=== PATIENT | female | born 1960 | race Caucasian/White ===

== ENCOUNTER → 2016-10-11 | Day surgery (SDC) | payer MEDICARE, OTHER ==
[~2016-10-11] VITALS: Ht 157.5 cm; Wt 44.4 kg
[~2016-10-11] MED LIST: *morphine SULFATE 8 MG/ML PERIprocedure ONLY ONE; BELL16.218 RECTAL; CHLORHEXIDINE GLUCONATE 2 % 1 PACK (2 CLOTHS) TOPICAL PRN; DO NOT ADM ANY ANTICOAGULANT DRUGS PRN; FENT50DI T-DERMAL; GENT80I BLADDER; HEPAR10KP BLADDER; HYDR-3583 PO; INSULIN HUMAN REGULAR 1,000 UNITS/10 ML VIAL SQ PRN; LACT10SO PO; LACTATED RINGER'S 1000 ML IV PRN; LIDOCAINE 0.5%/EPINEPHrine 1:200,000 SOLN 50 ML VIAL ONE; LIDOCAINE HCL 1% 20 ML VIAL INFIL ONE; LISI-519 PO; LORA-373 PO; MAGNSOL2 PO; METOPROLOL TARTRATE 25 MG TAB PO PRN; ONDANSETRON HCL 4 MG/2 ML VIAL IV PUSH PRN; POVIDONE IODINE 5% (ANTISEPSIS KIT) 4 APPLICATIONS EACH NARE PRN; PROC2.5C RECTAL; PROM25TA10 PO; PROM2SUP RECTAL; PROPOFOL 200 MG/20 ML AMP IV ONE; REMOVE OLD DURAGESIC (FENTANYL) PATCH T-DERMAL SCH; SODIUM CHLORID 0.9% 500 ML IV PRN; TRIA50P BLADDER; [UNRECOGNIZED DRUG - CODE] BLADDER; [UNRECOGNIZED DRUG - CODE] BLADDER; ceFAZolin 1,000 MG/NS 100 ML IV SCH; fentaNYL 50 MCG/HR PATCH T-DERMAL ONE; oxyCODONE/ACETAMINOPHEN 5 MG/325 MG TAB PO PRN
[2016-10-11 07:41] LABS: AUTOMATED NEUTROPHIL # 7.6 TH/MM3 (1.8-7.7); BASOPHIL # 0.1 TH/MM3 (0-0.2); BASOPHIL % 0.6 % (0.0-2.0); EOSINOPHIL # 0.2 TH/MM3 (0-0.4); EOSINOPHIL % 2.3 % (0.0-4.0); HEMATOCRIT 38.1 % (35.0-46.0); HEMO FLAGS DIFF FINAL; LYMPH % 16.8 % (9.0-44.0); LYMPHOCYTE # 1.8 TH/MM3 (1.0-4.8); MEAN CELL VOLUME 95.2 FL (80.0-100.0); MEAN CORPUSCULAR HEMOGLOBIN 31.7 PG (27.0-34.0); MEAN CORPUSCULAR HGB CONC 33.3 % (32.0-36.0); MONO % 7.5 % (0.0-8.0); NEUT % 72.8 % (16.0-70.0); PLATELET COUNT 270 TH/MM3 (150-450); RED CELL DISTRIBUTION WIDTH 12.7 % (11.6-17.2); WHITE BLOOD COUNT 10.5 TH/MM3 (4.0-11.0)
--- NOTE | 2016-10-11 10:29 | PD.OP ---
Operative Report Date of Surgery: Oct 11, 2016 Preoperative Diagnosis: Failed InterStim battery and lead Postoperative Diagnosis: Same Procedure: Implant of InterStim lead 36257 Battery change InterStim 59614 Fluoroscopy 88762 Programming of InterStim 05493 Surgeon: Cristobal Stark Hydraulic Jack Operator(s): None Resident Surgeon: None Operation and Findings: 56-year-old female with history of interstitial cystitis with overactive bladder symptoms and a failed InterStim lead and battery here to undergo battery and lead change. Risks minutes versus preoperative issues when proceed. Patient was brought to the operating room and identified by myself as Chely Tamayo. She is placed on the operating table in the prone position and received monitored anesthesia control. Preprocedure antibiotics were administered and she is prepped and draped in usual sterile fashion. Pillows were placed under the lower abdomen to flatten the sacrum and under the shins to allow the toes to dangle freely. A ground pad was placed on the bottom the patient's foot and the long test stimulator cable was connected to the ground pad and to the external test stimulator. C-arm was moved into the P position upon fluoroscopic mapping of the sacral region which included marking out midline of the sacrum, SI joints, static notches, medial foraminal borders and sacral foramen. Local injection of 1% lidocaine was administered and a foramen needle was placed and 60 angle into the S3 foramen. C-arm was then put into a lateral position to check depth of the needle into the placement of the proper foramen. The foramen needle was introduced approximately 2 cm above the sciatic notch and into centers lateral to the sacral midline, feeling for foraminal margins until the S3 foramen was identified and penetrated. The depth the needle was confirmed and adjusted fluoroscopically. Proper needle position was confirmed by patient identification of location of sensation, direct observation of lifting of the perineum, and observation of plantar flexion of the great toe utilizing the external stimulator. The needle foramen stylette was removed and a directional guide was then placed and confirmed fluoroscopically. The foramen needle was removed. Incision was made peripherally to the directional guide through the fascial layer. The lead introducer sheath with dilator was placed over the directional guide and directed into the foramen insuring the radiopaque marker the lead introducer did not extend beyond the anterior edge of the sacrum. The dilator was unlocked and removed along with the directional guide. The lead was then placed through the introducer sheath to the first white line. Position was checked fluoroscopically. The lead was then further reduced until 3 electrodes were visible below the sacrum. Each electrode was tested for location of patient's sensation, visualization of jalen, and plantar flexion of the great toe. After satisfactory positioning was confirmed, the introducer sheath was retracted under continuous fluoroscopy, deploying lead tines into the presacral tissue. Further incision was made and subcutaneous tissue posterior to the iliac crest and lateral to the sacrum. Blunt dissection was continued into the gluteal fascia was identified and hemostasis was achieved. The old battery was identified and disconnected from its lead. A tunneling tool with the strut was placed from the lead exit site subcutaneously to the incised pocket site. Tunneling tool was removed and the lead was fed through the straw and pulled out of the pocket site. The lead was cleansed of bodily fluids, dried and a protective boot is placed over the lead. Lead was inserted into the new InterStim battery. The old lead was then placed below the InterStim battery and the battery was placed in the pocket without difficulty. The battery pocket was irrigated prior to placement. Impedance were confirmed to be within normal limits, greater than 50 and less than 4000. The battery pocket was then closed with a 4-0 running subcuticular Monocryl suture. The main blood loss was 10 cc. Dressings were placed and Steri-Strips were placed over the wound. She was awoken and transferred to recovery in stable condition. CPT codes for this procedure include implant on the lead 04988, battery change 24185, fluoroscopy 75700, and battery program 51143. Cristobal Stark DO Oct 11, 2016 10:29
[2016-10-11 11:48] VITALS: BP 103/66; PULSE 77; RESP 16; TEMP 98.5; O2SAT 98
--- NOTE | 2016-10-11 15:48 | RADRPT ---
EXAM DATE/TIME: 10/11/2016 09:15 [facility] COMPARISON: No previous studies available for comparison. INDICATIONS : Right Interstim placement, MEDICAL HISTORY : None. SURGICAL HISTORY : None. Left interstim ENCOUNTER: Initial ACUITY: 1 day PAIN SCORE: Non-responsive. LOCATION: Right sacrum. FINDINGS: 2 magnified C. arm spot views are centered over the sacrum. Stimulator leads overlie the sacrum bilat erally. No gross bony abnormality seen. CONCLUSION: Limited images as detailed above. Lincoln Tim Jr., MD on October 11, 2016 at 15:45 Board Certified Radiologist. This report was verified electronically.
--- NOTE | 2016-10-11 20:26 | EKG ---
Date Performed: 10/11/2016 Time Performed: 07:14:28 PTAGE: 56 years EKG: Sinus rhythm PREVIOUS TRACING : 07/13/2015 07.46 Compared to prior tracing no significant change DOCTOR: Feliciano Stoner Interpretating Date/Time 10/11/2016 20:26:24
== END | disposition home or self-care (01) ==
LOC: HSDC 06:02
PROVIDERS: ATTEND Urology
DX: N30.10 Interstitial cystitis (chronic) without hematuria (principal); N32.81 Overactive bladder; I10 Essential (primary) hypertension; F17.210 Nicotine dependence, cigarettes, uncomplicated; F41.9 Anxiety disorder, unspecified; F32.9 Major depressive disorder, single episode, unspecified; Z01.810 Encounter for preprocedural cardiovascular examination; Z79.899 Other long term (current) drug therapy
CPT/HCPCS: 00630; 64581; 64590; 72220; 76000; 85025; 93005; C1713; C1767; C1778; C1787; J0690; J2270; J3010; J7120

== ENCOUNTER 2016-10-24 13:42 | Emergency (ER) | payer MEDICARE, OTHER ==
[~2016-10-24] VITALS: Ht 152.4 cm; Wt 45.0 kg
[~2016-10-24 13:42] MED LIST changes: -*morphine SULFATE 8 MG/ML PERIprocedure ONLY ONE; -CHLORHEXIDINE GLUCONATE 2 % 1 PACK (2 CLOTHS) TOPICAL PRN; -DO NOT ADM ANY ANTICOAGULANT DRUGS PRN; -GENT80I BLADDER; -HEPAR10KP BLADDER; -INSULIN HUMAN REGULAR 1,000 UNITS/10 ML VIAL SQ PRN; -LACT10SO PO; -LACTATED RINGER'S 1000 ML IV PRN; -LIDOCAINE 0.5%/EPINEPHrine 1:200,000 SOLN 50 ML VIAL ONE; -LIDOCAINE HCL 1% 20 ML VIAL INFIL ONE; -LISI-519 PO; -MAGNSOL2 PO; -METOPROLOL TARTRATE 25 MG TAB PO PRN; -ONDANSETRON HCL 4 MG/2 ML VIAL IV PUSH PRN; -POVIDONE IODINE 5% (ANTISEPSIS KIT) 4 APPLICATIONS EACH NARE PRN; -PROM25TA10 PO; -PROPOFOL 200 MG/20 ML AMP IV ONE; -REMOVE OLD DURAGESIC (FENTANYL) PATCH T-DERMAL SCH; -SODIUM CHLORID 0.9% 500 ML IV PRN; -TRIA50P BLADDER; -[UNRECOGNIZED DRUG - CODE] BLADDER; -[UNRECOGNIZED DRUG - CODE] BLADDER; -ceFAZolin 1,000 MG/NS 100 ML IV SCH; -fentaNYL 50 MCG/HR PATCH T-DERMAL ONE; -oxyCODONE/ACETAMINOPHEN 5 MG/325 MG TAB PO PRN
[2016-10-24 13:45] VITALS: BP 145/95; PULSE 99; RESP 24; TEMP 97.6; O2SAT 99
--- NOTE | 2016-10-24 15:05 | PD ---
HPI Chief Complaint: Abdominal Pain Time Seen by Provider: 15:04 Travel History International Travel<30 days: No Contact w/Intl Traveler<30days: No Traveled to known affect area: No History of Present Illness HPI 56-year-old female came to the emergency room looking very anxious and high- pitched voice but not making too much sense saying that she is here because the bladder stimulator wire got switched. From what I could understand after trying to reorient her to get a proper history is that her urologist Dr. Stark did a procedure on her last Friday at [place] and put a bladder stimulator. Since then she has been constipated. She was in the emergency room at [place] where she was told that she needs to see her urologist since the wires might be switched. She went to see Dr. Stark in his office but he was not in the office and the office staff asked to come to the emergency room. She is here demanding to see the urologist surgeon consumer analyst. Vital signs are stable. Patient says that she knows she is on opiate medications for pain control which could make her constipated but this is new since the procedure. [facility] Past Medical History Narrative Medical List of her past medical, surgical, social and family history was reviewed from the nursing note. Hx Anticoagulant Therapy: No Cancer: No Cardiovascular Problems: No Chemotherapy: No Cerebrovascular Accident: No Diabetes: No Endocrine: No Genitourinary: Yes (IC) Hepatitis: No Hiatal Hernia: No Immune Disorder: No Kidney Stones: Yes Musculoskeletal: No Neurologic: No Psychiatric: No Reproductive: No Respiratory: Yes (SMOKER) Thyroid Disease: No ?: Not Menopausal: Yes : 3 Para: 2 Miscarriage: 1 Past Surgical History Abdominal Surgery: Yes (CHOLY) AICD: No Body Medical Devices: BLADDER STIMULATOR Cardiac Surgery: No Cholecystectomy: Yes Ear Surgery: No Endocrine Surgery: No Eye Surgery: No Genitourinary Surgery: Yes (BLADDER STIMULATOR) Gynecologic Surgery: No Hysterectomy: No Joint Replacement: No Oral Surgery: No Pacemaker: No Thoracic Surgery: No Other Surgery: Yes (BREAST IMPLANTS ) Social History Alcohol Use: Yes (OCC) Tobacco Use: Yes (4 CIGARETTES A DAY) Substance Use: No Allergies-Medications (Allergen,Severity, Reaction): Coded Allergies: fesoterodine (Unverified Allergy, Severe, TONGUE SWELLING, TROUBLE BREATHING, 10/25/16) oxybutynin (Verified Allergy, Severe, TONGUE SWELLING, 10/25/16) trazodone (Verified Allergy, Severe, TONGUE SWELLING, 10/25/16) clonazepam (Unverified Allergy, Unknown, TONGUE SWELLING, 10/25/16) ketorolac (Unverified Allergy, Unknown, TONGUE SWELLING, 10/25/16) ondansetron (Verified Allergy, Unknown, UNKNOWN, 10/25/16) Comments List of her allergies reviewed from the nursing note. Reported Meds & Prescriptions Reported Meds & Active Scripts Active Magnesium Citrate Liq (Magnesium Citrate) 300 Ml Liq 300 Ml PO DIRECTED Reported Lisinopril 5 Mg Tab 5 Mg PO DAILY Lactulose Liq (Lactulose) 10 Gm/15 Ml Soln 30 Ml PO Q6H PRN Fentanyl Patch 72 HR (Fentanyl) 50 Mcg/Hr Patch 50 Mcg T-DERMAL Q72H Remove old patch when new one placed. Phenergan Supp (Promethazine HCl) 12.5 Mg Supp 12.5 Mg RECTAL Q6H PRN Proctosol Hc 2.5% (Hydrocortisone Rectal 2.5%) 2.5% Cream 1 Applic RECTAL DAILY PRN Belladonna-Opium Supp 16.2-30 Mg Supp 1 Supp RECTAL Q12HR PRN Hydrocodone-Acetaminophen 10-325 mg Tab 1 Tab PO Q6H PRN Lorazepam 0.5 Mg Tab 0.5 Mg PO Q8H PRN Narrative Medication List of her home medications reviewed from the nursing note. Review of Systems Except as stated in HPI: all other systems reviewed are Neg Physical Exam Narrative GENERAL: Awake, alert, anxious flight of thoughts SKIN: Focused skin assessment warm/dry. fentanyl patch on her chest HEAD: Atraumatic. Normocephalic. EYES: Pupils equal and round. No scleral icterus. No injection or drainage. ENT: No nasal bleeding or discharge. Mucous membranes pink and moist. NECK: Trachea midline. No JVD. CARDIOVASCULAR: Regular rate and rhythm. No murmur appreciated. RESPIRATORY: No accessory muscle use. Clear to auscultation. Breath sounds equal bilaterally. GASTROINTESTINAL: Abdomen soft, non-tender, nondistended. Hepatic and splenic margins not palpable. MUSCULOSKELETAL: No obvious deformities. No clubbing. No cyanosis. No edema. NEUROLOGICAL: Awake and alert. No obvious cranial nerve deficits. Motor grossly within normal limits. Normal speech. PSYCHIATRIC: Anxious with flight of thoughts and pressured speech; insight and judgment normal. Data Data Last Documented VS Vital Signs Date Time Temp Pulse Resp B/P (MAP) Pulse Ox O2 Delivery O2 Flow Rate FiO2 10/24/16 17:35 10/24/16 17:00 84 18 98 Room Air 10/24/16 13:45 97.6 Orders Orders Abdomen, Kub Only (10/24/16 ) Enema (10/24/16 16:52) MDM Medical Decision Making Medical Screen Exam Complete: Yes Emergency Medical Condition: Yes Medical Record Reviewed: Yes Differential Diagnosis Constipation, postsurgical complication Narrative Course 4:45 PM I discussed the case with Dr. Stark who eventually called back and he requested to get a KUB to check if patient is obstipated. If she was fine and then she could be discharged home and he will see her in his office tomorrow and have the device interrogated. It is very difficult to make the patient understand since she is fixated with the idea that she should she see Dr. Stark in the emergency room. I let her know that this was not an emergency and she could be seen as an outpatient at which point she threatened to call and complain to channel 13. I looked at the KUB and there might be some obstipation. Awaiting for the radiologist read the film. 4:46 PM as per the radiologist the x-ray is within normal limits with bowel gas pattern and stool all throughout the colon. Patient will get an enema given the fact that she hasn't had bowel movement in almost a week. After which she' ll be discharged. Procedures EKG Prior to Arrival: No Diagnosis Primary Impression: Postoperative complication Qualified Codes: N99.89 - Other postprocedural complications and disorders of genitourinary system Additional Impression: Constipation Qualified Codes: K59.03 - Drug induced constipation Referrals: Cristobal Stark DO 1 day Additional Instructions: Please follow-up with your urologist tomorrow morning as per the appointment time given to you. They will check the device and probably interrogated as well for its placement. Med/Other Pt SpecificInfo: No Change to Meds Disposition: 01 DISCHARGE HOME Condition: Stable Doris Taylor MD Oct 24, 2016 15:05
[2016-10-24 15:10] VITALS: BP 149/99; PULSE 85; RESP 18; O2SAT 98
[2016-10-24] MEDS ORDERED: LACT10SO PO (15:27)
[2016-10-24] MEDS ORDERED: LISI-519 PO (15:27)
--- NOTE | 2016-10-24 16:41 | RADRPT ---
EXAM DATE/TIME: 10/24/2016 16:24 [facility] COMPARISON: No previous studies available for comparison. INDICATIONS : Patient states constipation and abdominal pain since her stimulator was put in on Friday. MEDICAL HISTORY : None. SURGICAL HISTORY : Stimulator ENCOUNTER: Initial ACUITY: 1 day PAIN SCORE: Non-responsive. LOCATION: Bilateral Abdomen FINDINGS: Supine view of the abdomen was performed. The abdominal bowel gas pattern is normal. No abnormal ma sses, calcifications, or organomegaly is seen. Cholecystectomy clips. The osseous structures are unre markable. Nerve stimulators overlie the sacrum with a left lower pelvic device CONCLUSION: Normal examination. Nerve stimulator leads overlie both sides of the hemisacrum. Bowel gas pattern i s unremarkable with stool and air throughout the colon. Josh Hussein MD on October 24, 2016 at 16:38 Board Certified Radiologist. This report was verified electronically.
[2016-10-24 17:00] VITALS: BP 148/88; PULSE 84; RESP 18; O2SAT 98
[2016-10-25] MEDS ORDERED: MAGNSOL2 PO (10:53)
[2016-11-05] MEDS ORDERED: [UNRECOGNIZED DRUG - CODE] BLADDER (15:00)
[2016-11-05] MEDS ORDERED: [UNRECOGNIZED DRUG - CODE] BLADDER (15:00)
[2016-11-05] MEDS ORDERED: HEPAR10KP BLADDER (15:05)
[2016-11-05] MEDS ORDERED: GENT80I BLADDER (15:05)
[2016-11-05] MEDS ORDERED: TRIA50P BLADDER (15:05)
[2016-11-19] MEDS ORDERED: GENT80I BLADDER (15:04)
[2016-11-19] MEDS ORDERED: [UNRECOGNIZED DRUG - CODE] BLADDER (15:04)
[2016-11-19] MEDS ORDERED: HEPAR10KP BLADDER (15:04)
[2016-11-19] MEDS ORDERED: TRIA50P BLADDER (15:04)
[2016-11-19] MEDS ORDERED: [UNRECOGNIZED DRUG - CODE] BLADDER (15:04)
[2016-12-03] MEDS ORDERED: [UNRECOGNIZED DRUG - CODE] BLADDER (14:35)
[2016-12-03] MEDS ORDERED: [UNRECOGNIZED DRUG - CODE] BLADDER (14:35)
[2016-12-03] MEDS ORDERED: TRIA50P BLADDER (14:39)
[2016-12-03] MEDS ORDERED: HEPAR10KP BLADDER (14:39)
[2016-12-03] MEDS ORDERED: GENT80I BLADDER (14:39)
== END 2016-10-24 17:35 | disposition home or self-care (01) ==
LOC: NEPD 13:42
DX: K59.03 Drug induced constipation (principal); N99.89 Other postprocedural complications and disorders of genitourinary system; Z72.0 Tobacco use
CPT/HCPCS: 74000; 99283

== ENCOUNTER → 2017-02-20 | Day surgery (SDC) | payer MEDICARE, OTHER ==
[~2017-02-20] VITALS: Ht 154.9 cm; Wt 44.2 kg
[~2017-02-20] MED LIST changes: +BELLADONNA ALKALOIDS/OPIUM 60 MG SUPP RECTAL ONE; +BUPIVACAINE 0.5% ONE; +CHLORHEXIDINE GLUCONATE 2 % 1 PACK (2 CLOTHS) TOPICAL PRN; +DEXAMETHASONE SOD PHOS 4 MG/ML VIAL IV ONE; +HEPARIN ONE; +HYDROCORTISONE ONE; +HYDROmorphone HCL PF 1 MG/ML VIAL ONE; +LACT10SO PO; +LACTATED RINGER'S 1000 ML IV PRN; +LIDOCAINE 2% JELLY 5 ML TUBE ONE; +LIDOCAINE HCL 1% PF 5 ML SYRINGE OTHER ONE; +LISI-519 PO; -LORA-373 PO; +LORA0.5T PO; +MAGNSOL2 PO; +METOPROLOL TARTRATE 25 MG TAB PO PRN; +MORPHINE SULFATE 2 MG/ML INJ IV PRN; +PHENYLEPH/NS 1000 MCG/10 ML SYR IV ONE; +POVIDONE IODINE 5% (ANTISEPSIS KIT) 4 APPLICATIONS EACH NARE PRN; +PROMETHAZINE INJ 25 MG/ML VIAL IV-CENTRAL PRN; +PROPOFOL 200 MG/20 ML AMP IV ONE; +REMOVE OLD PATCH T-DERMAL SCH; +SODIUM CHLORID 0.9% 500 ML IV PRN; +[UNRECOGNIZED DRUG - OTHER] ONE; +[UNRECOGNIZED DRUG - OTHER] ONE; +ceFAZolin 1,000 MG/NS 100 ML IV SCH; +ePHEDrine/NS 25 MG/5 ML SYRINGE IV ONE; +fentaNYL 50 MCG/HR PATCH ONE; +fentaNYL 50 MCG/HR PATCH T-DERMAL ONE
[2017-02-20 09:19] LABS: BASOPHIL % 0.5 % (0.0-2.0); EOSINOPHIL # 0.1 TH/MM3 (0-0.4); EOSINOPHIL % 0.9 % (0.0-4.0); HEMATOCRIT 35.9 % (35.0-46.0); HEMOGLOBIN 12.1 GM/DL (11.6-15.3); LYMPH % 21.6 % (9.0-44.0); LYMPHOCYTE # 1.6 TH/MM3 (1.0-4.8); MEAN CELL VOLUME 94.4 FL (80.0-100.0); MEAN CORPUSCULAR HEMOGLOBIN 31.9 PG (27.0-34.0); MEAN CORPUSCULAR HGB CONC 33.8 % (32.0-36.0); MEAN PLATELET VOLUME 6.6 FL (7.0-11.0); MONO % 7.4 % (0.0-8.0); MONOCYTE # 0.5 TH/MM3 (0-0.9); NEUT % 69.6 % (16.0-70.0); PLATELET COUNT 292 TH/MM3 (150-450); RED CELL DISTRIBUTION WIDTH 12.8 % (11.6-17.2); WHITE BLOOD COUNT 7.2 TH/MM3 (4.0-11.0)
--- NOTE | 2017-02-20 10:43 | PD.OP ---
Operative Report Date of Surgery: Feb 20, 2017 Preoperative Diagnosis: Interstitial cystitis Postoperative Diagnosis: Same Procedure: Cystoscopy, hydrodistention with instillation of Euclid cocktail Anesthesia: Gen. LMA Surgeon: Cristobal Stark Constitutional Law Professor(s): None Resident Surgeon: None Operation and Findings: 56-year-old female with history of interstitial cystitis and ongoing pelvic pain. Patient was brought to the operating room today to undergo cystoscopy with hydrodistention with instillation of Euclid cocktail. Risk and benefits were discussed preoperative and she was willing to proceed. Patient was brought to the operating room and identified by myself as Chely Tamayo. She's placed in the dorsal lithotomy position, prepped and draped in usual sterile fashion, received preprocedure antibiotics, and general anesthesia was administered. 22 Divehi cystoscope was inserted in the bladder forte cystoscopy showed some erythema of the bladder. There were no Hunner's ulcers identified. The bladder then was filled with 1200 cc of normal saline. This was the maximum capacity that the bladder would hold. The bladder was then drained. A slight red hue was noted upon drainage of all the fluid. Марина cocktail was then instilled through a 14 Divehi Chu catheter with 2% lidocaine jelly injected into the female urethra. She tolerated the procedure well and was awoken and transferred her stable condition. Cristobal Stark DO Feb 20, 2017 10:43
[2017-02-20 11:44] VITALS: BP 118/92; PULSE 86; RESP 16; O2SAT 98
== END | disposition home or self-care (01) ==
LOC: HSDC 08:15
PROVIDERS: ATTEND Urology
DX: N30.10 Interstitial cystitis (chronic) without hematuria (principal); R10.2 Pelvic and perineal pain; Z01.818 Encounter for other preprocedural examination; G47.30 Sleep apnea, unspecified; Z87.440 Personal history of urinary (tract) infections; Z87.442 Personal history of urinary calculi
CPT/HCPCS: 00910; 52260; 85025; J0690; J1100; J1170; J2370; J3010; J7120

== ENCOUNTER 2017-07-22 09:49 | Emergency (ER) | payer MEDICARE, OTHER ==
[~2017-07-22] VITALS: Ht 154.9 cm; Wt 44.0 kg
[~2017-07-22 09:49] MED LIST changes: -BELLADONNA ALKALOIDS/OPIUM 60 MG SUPP RECTAL ONE; -BUPIVACAINE 0.5% ONE; -CHLORHEXIDINE GLUCONATE 2 % 1 PACK (2 CLOTHS) TOPICAL PRN; -DEXAMETHASONE SOD PHOS 4 MG/ML VIAL IV ONE; -HEPARIN ONE; -HYDROCORTISONE ONE; -HYDROmorphone HCL PF 1 MG/ML VIAL ONE; -LACTATED RINGER'S 1000 ML IV PRN; -LIDOCAINE 2% JELLY 5 ML TUBE ONE; -LIDOCAINE HCL 1% PF 5 ML SYRINGE OTHER ONE; -MAGNSOL2 PO; -METOPROLOL TARTRATE 25 MG TAB PO PRN; -MORPHINE SULFATE 2 MG/ML INJ IV PRN; -PHENYLEPH/NS 1000 MCG/10 ML SYR IV ONE; -POVIDONE IODINE 5% (ANTISEPSIS KIT) 4 APPLICATIONS EACH NARE PRN; -PROMETHAZINE INJ 25 MG/ML VIAL IV-CENTRAL PRN; -PROPOFOL 200 MG/20 ML AMP IV ONE; -REMOVE OLD PATCH T-DERMAL SCH; -SODIUM CHLORID 0.9% 500 ML IV PRN; -[UNRECOGNIZED DRUG - OTHER] ONE; -[UNRECOGNIZED DRUG - OTHER] ONE; -ceFAZolin 1,000 MG/NS 100 ML IV SCH; -ePHEDrine/NS 25 MG/5 ML SYRINGE IV ONE; -fentaNYL 50 MCG/HR PATCH ONE; -fentaNYL 50 MCG/HR PATCH T-DERMAL ONE
[2017-07-22 09:58] VITALS: BP 117/87; PULSE 91; RESP 17; TEMP 98.8; O2SAT 97
[2017-07-22] MEDS ORDERED: SODIUM CHLORID 0.9% 500 ML INJ 500 ML IV ONE (11:45)
[2017-07-22] MEDS ORDERED: PROMETHAZINE INJ 25 MG/ML VIAL IM ONE (11:45)
[2017-07-22] MEDS ORDERED: KETOROLAC TROMETHAMINE 30 MG/ML (IVP) VIAL IV PUSH ONE (11:45)
[2017-07-22 13:00] VITALS: RESP 16
--- NOTE | 2017-07-22 13:06 | PD ---
HPI Chief Complaint: Complaint Time Seen by Provider: 11:15 Travel History International Travel<30 days: No Contact w/Intl Traveler<30days: No Traveled to known affect area: No History of Present Illness HPI 57-year-old female complains of low back pain. Patient has history of interstitial cystitis and has been seen by urologist Dr. Stark and pain management. Patient has been taking morphine and fentanyl patch and hydrocodone for pain. Patient states that she fell out of bed and has increasing pain and low back area. Patient did not injure her back however patient states that the bladder stimulator lead was displaced. Patient states that she turned off the stimulator. Patient states that she had urinary retention Aleve but not now. Patient has been urinate several times since then. Patient denies any other injury. Patient denies any headache. Patient denies any chest pain or shortness of breath. Patient states that she has chronic low abdominal pelvic pain that is not new. Patient denies any focal weakness or numbness of the extremity. PFSH Past Medical History Hx Anticoagulant Therapy: No Cancer: No Cardiovascular Problems: No Chemotherapy: No Cerebrovascular Accident: No Diabetes: No Diminished Hearing: No Endocrine: No Genitourinary: Yes (INTERSTITIAL CYSTITIS) Hepatitis: No Hiatal Hernia: No Hypertension: Yes Immune Disorder: No Kidney Stones: Yes Musculoskeletal: No Neurologic: No Psychiatric: Yes (anxiety) Reproductive: No Respiratory: No Thyroid Disease: No Tetanus Vaccination: < 5 Years Influenza Vaccination: No ?: Not Menopausal: Yes : 3 Para: 2 Miscarriage: 1 Past Surgical History Abdominal Surgery: Yes (CHOLECYSTECTOMY) AICD: No Body Medical Devices: BLADDER STIMULATOR, BREAST IMPLANTS Cardiac Surgery: No Cholecystectomy: Yes Ear Surgery: No Endocrine Surgery: No Eye Surgery: No Genitourinary Surgery: Yes (BLADDER STIMULATOR) Gynecologic Surgery: No Hysterectomy: No Joint Replacement: No Oral Surgery: No Pacemaker: No Thoracic Surgery: No Other Surgery: Yes (BREAST IMPLANTS ) Social History Alcohol Use: No (DENIES) Tobacco Use: Yes (4-5 CIGARETTES A DAY) Substance Use: No Allergies-Medications (Allergen,Severity, Reaction): Coded Allergies: fesoterodine (Verified Allergy, Severe, TONGUE SWELLING, TROUBLE BREATHING , 07/22/17) oxybutynin (Verified Allergy, Severe, TONGUE SWELLING, 07/22/17) trazodone (Verified Allergy, Severe, TONGUE SWELLING, 07/22/17) clonazepam (Verified Allergy, Unknown, TONGUE SWELLING, 07/22/17) ondansetron (Verified Allergy, Unknown, UNKNOWN, 07/22/17) Reported Meds & Prescriptions Reported Meds & Active Scripts Active Reported Lisinopril 5 Mg Tab 5 Mg PO DAILY Lactulose Liq (Lactulose) 10 Gm/15 Ml Soln 30 Ml PO Q6H PRN Phenergan Supp (Promethazine HCl) 12.5 Mg Supp 12.5 Mg RECTAL Q6H PRN Proctosol Hc 2.5% (Hydrocortisone Rectal 2.5%) 2.5% Cream 1 Applic RECTAL DAILY PRN Belladonna-Opium Supp 16.2-30 Mg Supp 1 Supp RECTAL Q12HR PRN Hydrocodone-Acetaminophen 10-325 mg Tab 1 Tab PO Q6H PRN Lorazepam 0.5 Mg Tab 0.5 Mg PO Q8H PRN Review of Systems General / Constitutional: No: Fever Eyes: No: Visual changes HENT: No: Headaches Cardiovascular: No: Chest Pain or Discomfort Respiratory: No: Shortness of Breath Gastrointestinal: Positive: Abdominal Pain Genitourinary: No: Dysuria Musculoskeletal: No: Pain Skin: No Rash Neurologic: No: Weakness Psychiatric: No: Depression Endocrine: No: Polydipsia Hematologic/Lymphatic: No: Easy Bruising Physical Exam Narrative GENERAL: Well-nourished, well-developed patient. SKIN: Focused skin assessment warm/dry. HEAD: Normocephalic. EYES: No scleral icterus. No injection or drainage. NECK: Supple, trachea midline. No JVD or lymphadenopathy. CARDIOVASCULAR: Regular rate and rhythm without murmurs, gallops, or rubs. RESPIRATORY: Breath sounds equal bilaterally. No accessory muscle use. GASTROINTESTINAL: Abdomen soft, non-tender, nondistended. MUSCULOSKELETAL: No cyanosis, or edema. BACK: Patient has mild tenderness in palpation low back area, without obvious deformity. No CVA tenderness. Neurologic exam normal. Data Data Last Documented VS Vital Signs Date Time Temp Pulse Resp B/P (MAP) Pulse Ox O2 Delivery O2 Flow Rate FiO2 07/22/17 09:58 98.8 91 17 117/87 (97) 97 Orders Orders Sodium Chlorid 0.9% 500 Ml Inj (Ns 500 M (07/22/17 11:45) Ketorolac Inj (Toradol Inj) (07/22/17 11:45) Promethazine Inj (Phenergan Inj) (07/22/17 11:45) Ed Discharge Order (07/22/17 12:58) [facility] Medical Decision Making Medical Screen Exam Complete: Yes Emergency Medical Condition: Yes Differential Diagnosis Differential diagnosis including acute on chronic pain, bladder stimulator leads displacement. Narrative Course 57-year-old female with acute exacerbation of low back pain. History of chronic back pain and bladder pain. Patient in pain management. Patient has been seen by urologist. Diagnosis Primary Impression: Acute exacerbation of chronic low back pain Additional Impression: Interstitial cystitis Patient Instructions: General Instructions Additional Instructions: Continue with all medications. Follow-up with urologist Dr. Stark in the office. Med/Other Pt SpecificInfo: No Change to Meds Disposition: 01 DISCHARGE HOME Condition: Stable Elijah Trejo MD Jul 22, 2017 13:06
--- NOTE | 2017-07-22 14:29 | RADRPT ---
EXAM DATE: 07/22/2017 2:11 PM EDT AGE/SEX: 57 years / Female INDICATIONS: Tailbone pain after falling this morning. CLINICAL DATA: This is the patient's initial encounter. Patient reports that signs and symptoms have been present for 1 day and indicates a pain score of 8/10. MEDICAL/SURGICAL HISTORY: None. . Bladder stimulator. [place]PARISON[place] [facility] [place]. . FINDINGS: Two-view examination of the sacrum demonstrates no evidence of fracture or malalignment. The sacral ala and foramina appear symmetric and intact. The prevertebral soft tissues are within normal limits . CONCLUSION: No evidence of displaced fracture. Electronically signed by: Bairon Gamboa MD 07/22/2017 2:28 PM EDT
[2017-07-22 14:50] VITALS: BP 110/65
== END 2017-07-22 14:48 | disposition home or self-care (01) ==
LOC: NEPE 09:49
DX: M54.5 Low back pain (principal); G89.29 Other chronic pain; N30.10 Interstitial cystitis (chronic) without hematuria; F17.210 Nicotine dependence, cigarettes, uncomplicated; I10 Essential (primary) hypertension; R10.2 Pelvic and perineal pain
CPT/HCPCS: 72220; 96361; 96372; 96374; 99284; J1885; J2550; J7040

== ENCOUNTER → 2017-07-29 | Day surgery (SDC) | payer MEDICARE, OTHER ==
[~2017-07-29] VITALS: Ht 149.9 cm; Wt 44.7 kg
[~2017-07-29] MED LIST changes: +*PROMETHAZINE 25 MG/ML VIAL PERIprocedural use ONLY ONE; +BELLADONNA ALKALOIDS/OPIUM 60 MG SUPP RECTAL ONE; +BUPIVACAINE HCL PF 0.5% 30 ML VIAL ONE; +CHLORHEXIDINE GLUCONATE 2 % 1 PACK (2 CLOTHS) TOPICAL PRN; +DEXAMETHASONE SOD PHOS 4 MG/ML VIAL IV ONE; +DO NOT ADM ANY ANTICOAGULANT DRUGS PRN; -FENT50DI T-DERMAL; +GLYCOPYRROLATE 1 MG/5 ML SYRINGE IV PUSH ONE; +INSULIN HUMAN REGULAR 1,000 UNITS/10 ML VIAL SQ PRN; +LACTATED RINGER'S 1000 ML IV PRN; +LIDOCAINE HCL 1% PF 5 ML SYRINGE OTHER ONE; +LORazepam 1 MG TAB ONE; +METOPROLOL TARTRATE 25 MG TAB PO PRN; +MORPHINE SULFATE 4 MG/ML INJ IV PRN; +NEOSTIGMINE 5 MG/5 ML SYRINGE IV PUSH ONE; +ONABOTULINUMTOXINA INJ 100 UNITS/VIAL ONE; +PHENYLEPH/NS 1000 MCG/10 ML SYR IV ONE; +POVIDONE IODINE 5% (ANTISEPSIS KIT) 4 APPLICATIONS EACH NARE PRN; +PROPOFOL 200 MG/20 ML AMP IV ONE; +ROCURONIUM INJ 50 MG/5 ML SYRINGE IV PUSH ONE; +SODIUM CHLORID 0.9% 500 ML IV PRN; +SUGAMMADEX SODIUM 200 MG/2 ML VIAL IV PUSH ONE; +TRIAMCINOLONE ACETONIDE 40 MG/ML VIAL ONE; +[UNRECOGNIZED DRUG - OTHER] IRRIGATION ONE; +ceFAZolin 1,000 MG/NS 100 ML IV SCH; +ePHEDrine/NS 25 MG/5 ML SYRINGE IV ONE; +oxyCODONE/ACETAMINOPHEN 7.5 MG/325 MG TAB PO PRN
[2017-07-29 09:55] LABS: AUTOMATED NEUTROPHIL # 3.5 TH/MM3 (1.8-7.7); BASOPHIL # 0.1 TH/MM3 (0-0.2); BASOPHIL % 0.9 % (0.0-2.0); EOSINOPHIL # 0.1 TH/MM3 (0-0.4); EOSINOPHIL % 1.3 % (0.0-4.0); HEMATOCRIT 38.1 % (35.0-46.0); HEMOGLOBIN 12.5 GM/DL (11.6-15.3); LYMPH % 30.1 % (9.0-44.0); LYMPHOCYTE # 1.8 TH/MM3 (1.0-4.8); MEAN CELL VOLUME 94.2 FL (80.0-100.0); MEAN CORPUSCULAR HEMOGLOBIN 30.8 PG (27.0-34.0); MEAN CORPUSCULAR HGB CONC 32.7 % (32.0-36.0); MEAN PLATELET VOLUME 6.4 FL (7.0-11.0); MONO % 8.5 % (0.0-8.0); MONOCYTE # 0.5 TH/MM3 (0-0.9); NEUT % 59.2 % (16.0-70.0); PLATELET COUNT 359 TH/MM3 (150-450); RED BLOOD COUNT 4.05 MIL/MM3 (4.00-5.30); RED CELL DISTRIBUTION WIDTH 12.9 % (11.6-17.2); WHITE BLOOD COUNT 5.9 TH/MM3 (4.0-11.0)
--- NOTE | 2017-07-29 11:37 | PD.OP ---
Operative Report Date of Surgery: Jul 29, 2017 Preoperative Diagnosis: Interstitial cystitis with chronic pelvic pain Postoperative Diagnosis: Same Procedure: Cystoscopy with hydrodistention with instillation of Talcott cocktail Liv massage with injection of Marcaine, Botox, and Kenalog Anesthesia: GRACY Surgeon: Cristobal Stark Welding Equipment Repairer Supervisor(s): None Resident Surgeon: None Operation and Findings: 57-year-old female with history of interstitial cystitis and chronic pelvic pain. Patient has been treated with multiple treatments in the past. She elected to undergo cystoscopy with hydrodistention and instillation of Марина cocktail with Liv massage utilizing Kenalog Marcaine and Botox to the pelvic region. Risk and benefits were discussed preoperatively patient is willing to proceed. Patient was brought to the operating room and identified by myself as Chely Tamayo. She was placed in the dorsolithotomy position, prepped and draped in usual sterile fashion, received preprocedure antibiotics and general endotracheal tube anesthesia was administered. 20 Sudanese cystoscope was inserted in the bladder and forte cystoscopy was unremarkable. No Brandin's ulcers were identified. The bladder was then filled with normal saline up to 1000 cc. The bladder was then drained and a red hue was noted at the end of the drainage. A 16 Sudanese red rubber catheter was then inserted and the Марина cocktail was instilled into the bladder. Then using a 21-gauge spinal needle a mixture of 30 cc of Marcaine with 10 mg of Kenalog and 100 mg of Botox were injected on each side of the vaginal vault and Liv massage was then performed. The patient tolerated the procedure well and was awoken and extubated and transferred recovery in stable condition. Cristobal Stark DO Jul 29, 2017 11:37
[2017-07-29 13:10] VITALS: BP 136/93; PULSE 72; RESP 16; TEMP 97.6; O2SAT 100
== END | disposition home or self-care (01) ==
LOC: HSDC 08:22
PROVIDERS: ATTEND Urology
DX: N30.11 Interstitial cystitis (chronic) with hematuria (principal); N31.9 Neuromuscular dysfunction of bladder, unspecified; R10.2 Pelvic and perineal pain; G89.29 Other chronic pain; I10 Essential (primary) hypertension
CPT/HCPCS: 00910; 52260; 52287; 85025; J0585; J1100; J1644; J1720; J2370; J2550; J2710; J3010; J3301